=== PATIENT | female | born 1980 ===

== ENCOUNTER 2017-05-30 22:07 | Emergency (ER) | payer OTHER ==
[2017-05-30 22:12] VITALS: BP 134/69; PULSE 72; RESP 16; TEMP 98.2; O2SAT 100
[2017-05-30] MEDS ORDERED: Atrop/Hyos/Scop/PhenoB Elixir PO STA (22:33)
[2017-05-30] MEDS ORDERED: Alum-Mag Hydrox-Simethicone Susp (30 mL) PO STA (22:33)
[2017-05-30] MEDS ORDERED: Sodium Chloride 0.9% 500 ML IV ONE (22:35)
[2017-05-30 22:55] LABS: BASO # 0.1 K/uL (0.0-0.2); BASO % 0.9 % (0.0-2.0); EOS # 0.1 K/uL (0.0-0.7); EOS % 1.3 % (0.0-4.0); HEMOGLOBIN 11.6 g/dL (12.0-16.0); LYMPH # 2.8 K/uL (1.0-4.3); LYMPH % 35.3 % (20.0-40.0); MEAN CORPUSCULAR HEMOGLOBIN 26.2 pg (27.0-31.0); MEAN CORPUSCULAR HGB CONC 31.6 g/dL (33.0-37.0); MEAN PLATELET VOLUME 9.1 fl (7.2-11.7); MONO # 1.1 K/uL (0.0-0.8); MONO % 13.5 % (0.0-10.0); NEUT # 3.9 K/uL (1.8-7.0); RBC 4.42 Mil/uL (3.80-5.20); RED CELL DISTRIBUTION WIDTH 12.9 % (11.5-14.5)
[2017-05-30 22:57] LABS: SQUAMOUS EPITHIAL < 1 /hpf (0-5); URINE BACTERIA OCC (<OCC); URINE BILIRUBIN NEGATIVE (NEGATIVE); URINE BLOOD NEGATIVE (NEGATIVE); URINE CLARITY CLEAR (Clear); URINE COLOR COLORLESS (YELLOW); URINE GLUCOSE (UA) NEG (Normal); URINE LEUKOCYTE ESTERASE TRACE Leu/uL (Negative); URINE NITRATE NEGATIVE (NEGATIVE); URINE PROTEIN NEGATIVE (NEGATIVE); URINE UROBILINOGEN 0.2-1.0 mg/dL (0.2-1.0)
[2017-05-30 23:04] LABS: ALB/GLOB RATIO 1.2 (1.0-2.1); ALBUMIN 3.9 g/dL (3.5-5.0); ALT/SGPT 37 U/L (9-52); AST/SGOT 34 U/L (14-36); BLOOD UREA NITROGEN 12 mg/dl (7-17); CALCIUM 9.3 mg/dL (8.4-10.2); GFR AFRICAN-AMERICAN > 60; GFR NON-AFRICAN AMERICAN > 60; LIPASE 83 U/L (23-300)
--- NOTE | 2017-05-30 23:25 | ED PDOC ---
HPI: Abdomen Time Seen by Provider: 05/30/17 22:14 Chief Complaint (Nursing): Abdominal Pain Chief Complaint (Provider): Abdominal Pain History Per: Patient History/Exam Limitations: no limitations Onset/Duration Of Symptoms: Days (x3), Intermittent Episodes Current Symptoms Are (Timing): Still Present Location Of Pain/Discomfort: Epigastric Quality Of Discomfort: Burning Associated Symptoms: denies: Fever, Vomiting, Diarrhea, Back Pain, Chest Pain Additional Complaint(s): 37 year old female presents to ED with complaints of intermittent abdominal pain x3 days and has a past medical history of multiple sclerosis. Describes the pain as a burning sensation in the epigastric region. (-) vomiting, diarrhea , fever, chest pain, SOB, back pain, or radiation of pain. Patient notes that she takes "shots as treatment for her multiple sclerosis", and that her last treatment was x5 days ago. PCP: Dr. Alfredo Lam in [place] Past Medical History Reviewed: Historical Data, Nursing Documentation, Vital Signs Vital Signs: Last Vital Signs Temp 98.2 F 05/30/17 22:10 Pulse 72 05/30/17 22:10 Resp 16 05/30/17 22:10 BP 134/69 05/30/17 22:10 Pulse Ox 100 05/31/17 01:18 - Medical History PMH: Multiple Sclerosis - Surgical History Surgical History: No Surg Hx - Family History Family History: States: No Known Family Hx - Social History Current smoker - smoking cessation education provided: No Ex-Smoker (has not smoked in the last 12 months): No Alcohol: None Drugs: Denies - Immunization History Hx Tetanus Toxoid Vaccination: No Hx Influenza Vaccination: No Hx Pneumococcal Vaccination: No - Home Medications Home Medications: Ambulatory Orders Medication Instructions Recorded Calcium Carbonate [Calcium] 500 mg PO DAILY 12/25/16 Interferon Beta-1A/Albumin [Rebif] 22 mcg SC Q3 12/25/16 Esomeprazole Magnesium [Nexium] 40 mg PO DAILY #30 capsule. 05/31/17 Nitrofurantoin Macrocrystals 100 mg PO BID #14 cap 05/31/17 [Macrobid] - Allergies Allergies/Adverse Reactions: Allergies Allergy/AdvReac Type Severity Reaction Status Date / Time No Known Allergies Allergy Verified 05/30/17 22:10 Review of Systems ROS Statement: Except As Marked, All Systems Reviewed And Found Negative Constitutional: Negative for: Fever Cardiovascular: Negative for: Chest Pain Respiratory: Negative for: Shortness of Breath Gastrointestinal: Positive for: Abdominal Pain (epigastric). Negative for: Vomiting, Diarrhea Musculoskeletal: Negative for: Back Pain Physical Exam - Reviewed Nursing Documentation Reviewed: Yes Vital Signs Reviewed: Yes - Physical Exam Appears: Positive for: Well, Non-toxic, No Acute Distress. Negative for: In Acute Distress Skin: Positive for: Normal Color, Warm, Dry ENT: Positive for: Normal ENT Inspection Neck: Positive for: Normal Cardiovascular/Chest: Positive for: Regular Rate, Rhythm. Negative for: Murmur , Bradycardia Respiratory: Positive for: Normal Breath Sounds. Negative for: Rales, Rhonchi, Wheezing, Respiratory Distress Gastrointestinal/Abdominal: Positive for: Soft, Tenderness (mild epigastric tenderness). Negative for: Organomegaly, Mass, Distended, Guarding, Rebound, Other (murhy's sign) Back: Positive for: Normal Inspection. Negative for: L CVA Tenderness, R CVA Tenderness Extremity: Positive for: Normal ROM. 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 Negative for: Motor/Sensory Deficits - Laboratory Results Result Diagrams: 05/30/17 22:50 05/30/17 22:50 Urine POC: Negative Urine dip results: Positive for: Leukocyte Esterase (+trace) - ECG O2 Sat by Pulse Oximetry: 100 (RA) Pulse Ox Interpretation: Normal Medical Decision Making Medical Decision Makin Initial impression: epigastric pain, likely dyspepsia r/o biliary colic Initial plan: * Labs * Lipase * 5mL PO * Lidocaine 2% viscous 15mL PO * Maalox Plus 30mL PO * NS IV * Pepcid 20mg IVP * UCx * UA * US ABD LIMITED * Re-eval Labs reviewed : wbc and cmp is wnl, UA shows evidence of UTI. US abdomen : FINDINGS: Liver: Liver is unremarkable.There is hepatopedal flow in the main portal vein. Gallbladder: Gallbladder is only partially distended with no stones, sludge or wall thickening. Common bile duct: Common bile duct measures approximately 5 mm in diameter. Pancreas: Pancreas is partially obscured by bowel gas. Right kidney: Right kidney is unremarkable. Aorta: Visualized portions of the aorta and inferior vena cava are unremarkable. IMPRESSION: Limited evaluation of the gallbladder due to incomplete distention, no shadowing stones or ductal dilatation Patient was not tender over the gallbladder Dictated and Authenticated by: Gita Mclaughlin MD 05/31/2017 12:51 AM Eastern Time ([place] & [place]) On reevaluation, patient is laying in bed comfortably in no acute distress. Patient reports significant improvement of her abdominal pain, denies any nausea , vomiting, chest pain or shortness of breath. On exam, abdomen remained soft with no tenderness, no guarding, no rebound, negative Loya sign. Diagnostic results discussed with the patient in great detail. Patient notified that the ultrasound is negative, advised that she likely has symptoms of dyspepsia, informed that she also has a UTI and that we will give her a prescription for Macrobid. Based on history, exam and diagnostic results plan will be for outpatient follow -up with PMD. Patient instructed to follow up with primary care physician in 1- 2 days without fail. Advised to take medication as prescribed. Return to the emergency room at any time for any new or worsening symptoms. Patient states she fully agrees with and understands discharge instructions. States that she agrees with the plan and disposition. Verbalized and repeated discharge instructions and plan. I have given the patient opportunity to ask any additional questions. Scribe Attestation: Documented by Opal Mulligan acting as a scribe for Yuni Crump PA-C. MD Scribe Attestation: All medical record entries made by the Scribe were at my direction and personally dictated by me. I have reviewed the chart and agree that the record accurately reflects my personal performance of the history, physical exam, medical decision making, and the department course for this patient. I have also personally directed, reviewed, and agree with the discharge instructions and disposition. Disposition - Clinical Impression Clinical Impression: Abdominal pain, Dyspepsia, UTI (urinary tract infection) - Patient ED Disposition Is Patient to be Admitted: No Counseled Patient/Family Regarding: Studies Performed, Diagnosis, Need For Followup, Rx Given - Disposition Disposition: Routine/Home Disposition Time: 01:00 Condition: IMPROVED Additional Instructions: Thank you for letting us take care of you today. You were treated for abdominal pain, dyspepsia, UTI. The emergency medical care you received today was directed at your acute symptoms. If you were prescribed any medication, please fill it and take as directed. It may take several days for your symptoms to resolve. Return to the Emergency Department if your symptoms worsen, do not improve, or if you have any other problems. Please contact your doctor in 2 days for re-evaluation and follow up. Bring any paperwork you were given at discharge with you along with any medications you are taking to your follow up visit. Our treatment cannot replace ongoing medical care by a primary care provider (PCP) outside of the emergency department. Thank you for allowing the [facility] team to be part of your care today. If you had a urine culture: It will take several days for the results, if any change in treatment is needed we will contact you. Prescriptions: Esomeprazole Magnesium [Nexium] 40 mg PO DAILY #30 capsule. Nitrofurantoin Macrocrystals [Macrobid] 100 mg PO BID #14 cap Instructions: Urinary Tract Infection in Women (ED), Chronic Indigestion (ED), Acute Abdominal Pain (ED) Forms: [facility] ([place]an), [facility] ED School/Work Excuse Print Language: KYRGYZ
--- NOTE | 2017-05-31 00:52 | US ---
EXAM: US Abdomen Limited, Right Upper Quadrant EXAM DATE/TIME: 05/30/2017 10:35 PM CLINICAL HISTORY: 37 years old, female; Pain; Abdominal pain; Epigastric; Additional info: Epigastric pain, R/O biliary colic ADDITIONAL HISTORY: Patient is not n.p.o. TECHNIQUE: Real-time ultrasound of the right upper quadrant with image documentation. COMPARISON: There are no prior studies for comparison. FINDINGS: Liver: Liver is unremarkable.There is hepatopedal flow in the main portal vein. Gallbladder: Gallbladder is only partially distended with no stones, sludge or wall thickening. Common bile duct: Common bile duct measures approximately 5 mm in diameter. Pancreas: Pancreas is partially obscured by bowel gas. Right kidney: Right kidney is unremarkable. Aorta: Visualized portions of the aorta and inferior vena cava are unremarkable. IMPRESSION: Limited evaluation of the gallbladder due to incomplete distention, no shadowing stones or ductal dilatation Patient was not tender over the gallbladder
== END 2017-05-31 01:25 | disposition home or self-care (01) ==
LOC: H.ER 22:07
DX: N39.0 Urinary tract infection, site not specified (principal); G35 Multiple sclerosis
CPT/HCPCS: 76705; 80053; 81003; 81025; 83690; 85025; 96361; 96374; 99284; J7040

== ENCOUNTER 2018-04-09 10:22 | Emergency (ER) | payer OTHER ==
[2018-04-09 10:27] VITALS: TEMP 98.4; O2SAT 100
[2018-04-09] MEDS ORDERED: PROPARACAINE/FLUORESCEIN SOD 100 DROP/5 ML BOTTLE OS STA (10:51)
--- NOTE | 2018-04-09 10:57 | ED PDOC ---
HPI: Eye Injury/Pain Time Seen by Provider: 04/09/18 10:55 Chief Complaint (Nursing): Eye Problem Chief Complaint (Provider): left eyelid swelling History Per: Patient (38 y/o female here with progressively worsening left eyelid swelling. Denies any eye pain. No discharge from eye. No URI/cough/fever. Does not wear contact lens. ) Past Medical History Reviewed: Historical Data, Nursing Documentation, Vital Signs Vital Signs: Last Vital Signs Temp 98.4 F 04/09/18 10:27 Pulse 68 04/09/18 10:27 Resp 18 04/09/18 10:27 BP 143/84 04/09/18 10:27 Pulse Ox 100 04/09/18 10:27 - Medical History PMH: Multiple Sclerosis - Family History Family History: States: Unknown Family Hx - Immunization History Hx Tetanus Toxoid Vaccination: No Hx Influenza Vaccination: No Hx Pneumococcal Vaccination: No - Home Medications Home Medications: Ambulatory Orders Medication Instructions Recorded Calcium Carbonate [Calcium] 500 mg PO DAILY 12/25/16 Interferon Beta-1A/Albumin [Rebif] 22 mcg SC Q3 12/25/16 Esomeprazole Magnesium [Nexium] 40 mg PO DAILY #30 capsule. 05/31/17 Nitrofurantoin Macrocrystals 100 mg PO BID #14 cap 05/31/17 [Macrobid] Cephalexin [cephalexin] 500 mg PO TID #21 cap 04/09/18 Erythromycin 0.5% [Erythromycin] 0.5 inch OS BID #1 tube 04/09/18 - Allergies Allergies/Adverse Reactions: Allergies Allergy/AdvReac Type Severity Reaction Status Date / Time No Known Allergies Allergy Verified 04/09/18 10:40 Review of Systems ROS Statement: Except As Marked, All Systems Reviewed And Found Negative ENT: Positive for: Other (eyelid swelling) Physical Exam - Reviewed Nursing Documentation Reviewed: Yes Vital Signs Reviewed: Yes (visual acuity bilateral 20/30; left 2/30; right 20/40) - Physical Exam Appears: Positive for: Well, Non-toxic, No Acute Distress Head Exam: Positive for: ATRAUMATIC, NORMAL INSPECTION, NORMOCEPHALIC Skin: Positive for: Normal Color, Warm, DRY Eye Exam: Positive for: Normal appearance, EOMI, PERRL, Other (left eyelid swelling. ). Negative for: Conjunctival injection ENT: Positive for: Normal ENT Inspection Neck: Positive for: Normal, Painless ROM Cardiovascular/Chest: Positive for: Regular Rate, Rhythm Respiratory: Positive for: CNT, Normal Breath Sounds Gastrointestinal/Abdominal: Positive for: Normal Exam, Soft Back: Positive for: Normal Inspection Extremity: Positive for: Normal ROM Neurologic/Psych: Positive for: Alert, Oriented - ECG O2 Sat by Pulse Oximetry: 100 Disposition - Clinical Impression Clinical Impression: Blepharitis, left eye - Patient ED Disposition Is Patient to be Admitted: No - Disposition Referrals: Jose Angel Camacho MD [Staff Provider] - Disposition: Routine/Home Disposition Time: 11:01 Condition: FAIR Prescriptions: Cephalexin [cephalexin] 500 mg PO TID #21 cap Erythromycin 0.5% [Erythromycin] 0.5 inch OS BID #1 tube Instructions: Blepharitis
[2018-04-09 11:24] VITALS: BP 132/80; PULSE 70; RESP 16
== END 2018-04-09 11:24 | disposition home or self-care (01) ==
LOC: H.ER 10:22
DX: H01.006 Unspecified blepharitis left eye, unspecified eyelid (principal); G35 Multiple sclerosis